=== PATIENT | male | born 1990 | race Caucasian/White ===

== ENCOUNTER 2022-07-16 11:17 | Emergency (ER) | payer OTHER ==
[~2022-07-16] VITALS: Ht 182.8 cm; Wt 94.8 kg
[~2022-07-16 11:17] MED LIST: ANUSOL-HC25 MG RC; CORTIZONE TP; IBU800 MG PO; KEFLEX500 MG PO; PERCOCET 325 MG1 TA2 PO; TRAMADOL HCL50 MG PO; [UNRECOGNIZED DRUG - REMARK] PO
== END 2022-07-16 12:27 | disposition home or self-care (01) ==
LOC: ED 11:17
DX: S62.663A Nondisplaced fracture of distal phalanx of left middle finger, initial encounter for closed fracture (principal); Z88.8 Allergy status to other drugs, medicaments and biological substances; Z90.89 Acquired absence of other organs; W22.8XXA Striking against or struck by other objects, initial encounter; Y93.89 Activity, other specified; Y92.89 Other specified places as the place of occurrence of the external cause; Y99.8 Other external cause status